=== PATIENT | male | born 1945 | race Caucasian/White ===

== ENCOUNTER 2019-11-05 11:36 | Emergency (ER) | payer MEDICARE, SELFPAY ==
[2019-11-05 11:39] VITALS: BP 163/77; PULSE 73; RESP 16; TEMP 36.7; O2SAT 97
[2019-11-05 11:54] LABS: Basophils Absolute Auto 0.1 K/mm3 (0.0-0.1); Basophils Percent Auto 0.8 % (0.2-1.2); Eosinophils Absolute Auto 0.1 K/mm3 (0-0.3); Eosinophils Percent Auto 1.1 % (0-4.4); Hematocrit 41.3 % (42.0-52.0); Hemoglobin 13.9 g/dL (14.0-18.0); Immature Granulocyte Absolute 0.04 K/mm3 (0.00-0.031); Immature Granulocyte Percent A 0.6 % (0-0.5); Lymphocytes Absolute Auto 1.45 K/mm3 (0.9-3.2); Lymphocytes Percent Auto 19.9 % (18.3-44.2); Mean Corpuscular HGB Conc 33.7 g/dl (32-36); Mean Corpuscular Hemoglobin 31.4 pg (26-34); Mean Corpuscular Volume 93.2 fl (80-100); Monocytes Absolute Auto 0.5 K/mm3 (0.1-0.6); Monocytes Percent Auto 6.6 % (2.6-8.5); Neutrophils Absolute Auto 5.2 K/mm3 (1.3-6.7); Platelet Count Result 212 k/mm3 (150-375); Red Blood Count 4.43 M/mm3 (4.6-6.20); Red Cell Distribution Width 12.4 % (11.5-14.5); White Blood Count 7.3 K/mm3 (4.5-10.0)
[2019-11-05 12:07] LABS: Alanine Aminotransferase 22 U/L (4-50); Albumin Level 4.5 g/dL (3.5-5.1); Alkaline Phosphatase 43 U/L (38-126); Aspartate Amino Transferase 25 U/L (17-59); Bilirubin,Total 0.6 mg/dL (0.2-1.3); Blood Urea Nitrogen 16 mg/dL (9-20); Calcium 9.2 mg/dL (8.4-10.2); Carbon Dioxide 20 mmol/L (22-30); Chloride 107 mmol/L (98-107); Estimated CRCL calculation 66 ml/min; Estimated Glomerular Filt Rate > 60; Glucose 104 mg/dL (75-110); Potassium 4.1 mmol/L (3.4-5.0); Sodium 137 mmol/L (137-145)
--- NOTE | 2019-11-05 12:14 | ED.MALEGU ---
HPI - Male Genitourinary General Chief complaint: Urogenital-Male Stated complaint: welpBria peeing blood Time Seen by Provider: 11/05/19 12:14 Source: patient Mode of arrival: ambulatory Limitations: no limitations History of Present Illness HPI Narrative: A 74 y/o male presents to the ED with c/o hematuria for 2 days. Pt has a PMHx of BPH that he has seen Dr. Lyn for in the past. Pt was on Avodart and Flomax but no longer takes these medications. Pt does not have a history of hematuria. Pt notes that he has a FHx of various cancers. Pt's brother from prostate cancer. He reports dysuria, but denies urinary urgency, urinary retention, ABD pain, N/V, and a fever. Onset (ago): day(s) (2) Related Data Home Medications Medication Instructions Recorded Confirmed calcium carbonate 1,177 mg 1,177 mg PO DAILY 08/14/19 08/18/19 chewable tablet cholecalciferol (vitamin D3) 125 unit PO 08/14/19 08/18/19 mcg (5,000 unit) disintegrating tablet cyanocobalamin (vitamin B-12) 1,000 mcg PO DAILY 08/14/19 08/18/19 1,000 mcg capsule omega-3 fatty acids 1,000 mg 1,000 mg PO DAILY 08/18/19 08/18/19 capsule Allergies Allergy/AdvReac Type Severity Reaction Status Date / Time No Known Drug Allergies Allergy Unknown Verified 11/05/19 11:43 Review of Systems Review of Systems: All systems reviewed & are unremarkable except as noted in HPI and below Constitutional: Constitutional: Denies fever(s) Gastrointestinal: Gastrointestinal: Denies abdominal pain, Denies nausea and Denies vomiting Genitourinary: Genitourinary: Reports hematuria, Reports dysuria and Denies urinary urgency Comments: Denies: urinary retention PMF Past Medical History Medical History Benign prostate hyperplasia Hyperlipidemia Hypertension Obesity Prediabetes Sleep apnea Vertigo Vitamin D deficiency, unspecified Surgical History Surgical History Hx of colonoscopy Social History Social History (Updated 11/05/19 @ 12:29 by Merlene Padilla) Smoking status: Never smoker Gender identity (if verbalized by the patient): Male Comments PCP: Dr. Zuniga Exam Const: General: cooperative and healthy appearing Nutritional Appearance: obese Orientation/consciousness: patient oriented x3 Limitations: no limitations HENMT: Head: normal to inspection Neck: Neck: normal visual inspection and no lymphadenopathy Chest: Chest palpation & inspection: no tenderness Resp: Effort & Inspection: normal respiratory effort Auscultation: clear to auscultation bilaterally, no rales, no rhonchi and no wheezes Cardio: Jugular venous distension: no JVD Rate: regular rate Rhythm: regular rhythm Heart sounds: no murmurs GI: Inspection: non-distended GI Palp: Yes Soft to palpation and No Tenderness to palpation present (GI) Skin: General skin exam: normal color Neuro: General: patient oriented x3 and moves all extremities Speech: normal speech Extrem: General: no edema Psych: Appearance: well kempt Affect: normal affect Course Vital Signs Vital signs: Vital Signs Temperature 36.7 C 11/05/19 11:39 Pulse Rate 73 11/05/19 11:39 Respiratory Rate 16 11/05/19 11:39 Blood Pressure 163/77 H 11/05/19 11:39 Pulse Oximetry 97 11/05/19 11:39 Temperature 36.7 C 11/05/19 11:39 Pulse Rate 73 11/05/19 11:39 Respiratory Rate 16 11/05/19 11:39 Blood Pressure 163/77 H 11/05/19 11:39 Pulse Oximetry 97 11/05/19 11:39 MDM - Male Genitourinary MDM Narrative Medical decision making narrative: He has moderate hematuria. UA indeterminate for infection. Not retaining on bladder scan. Will start antibiotics for suspected infection and have him follow-up with urology if it does not resolve. Differential Diagnosis Differential diagnosis: Likely urinary tract infection, prostatitis and acute retention of urine Medic
[2019-11-05 12:27] LABS: Add Urine Microscopic? YES; Appearance Urine Cloudy (Clear); Bilirubin Urine Negative (Negative); Blood Urine 3+ (Negative); Color Urine Yellow (Yellow); Glucose Urine UA Negative (Negative); Ketones Urine Negative (Negative); Leukocyte Esterase Ur Negative LEU/UL (Negative); Nitrate Urine Negative (Negative); Protein Urine 2+ mg/dL (Negative); RBC Urine >75 /hpf (0-2); Specific Grav Ur 1.017 (1.001-1.035); Urobilinogen Urine Negative mg/dL (<2.0); WBC Urine 16-20 /hpf
[2019-11-05] MEDS: CEFDINIR 300 MG CAPSULE PO (13:10)
== END 2019-11-05 13:32 | disposition home or self-care (01) ==
PROVIDERS: Emergency Provider Emergency Medicine; PCP Internal Medicine
DX: N39.0 Urinary tract infection, site not specified (principal); R31.9 Hematuria, unspecified; N40.0 Benign prostatic hyperplasia without lower urinary tract symptoms; E78.5 Hyperlipidemia, unspecified; I10 Essential (primary) hypertension; G47.30 Sleep apnea, unspecified; E55.9 Vitamin D deficiency, unspecified; E66.9 Obesity, unspecified; Z68.33 Body mass index [BMI] 33.0-33.9, adult; R73.03 Prediabetes
CPT/HCPCS: 36415; 80053; 81001; 85025; 87086; 87088; 99283; A9270

== ENCOUNTER 2020-01-30 13:57 | Outpatient (CLI) | payer MEDICARE, SELFPAY ==
--- NOTE | ~2020-01-30 | CT_ITS ---
EXAMINATION: CT abdomen pelvis wo/w con DATE: 01/30/2020 14:59 INDICATION: Gross hematuria TECHNIQUE: Computed tomography (CT) of the abdomen and pelvis was performed without intravenous contr ast. CT of the abdomen and pelvis was then performed with a total of 130 mL Omnipaque 350 intravenous contrast using a double-bolus technique for simultaneous opacification of the renal parenchyma and r enal collecting system. The dose-length product (DLP) was 2411.21 mGy-cm. Automated exposure control and iterative reconstruction technique were employed. COMPARISON: 04/18/2019 FINDINGS: Minimal dependent atelectasis is present in the lung bases. The heart size is normal. The l iver, spleen, pancreas, gallbladder, and adrenal glands are normal. No stones are identified in the k idneys, ureters, or bladder. There is no hydronephrosis or hydroureter. No suspicious renal or urothe lial lesion is identified. There is marked enlargement of the prostate with enlargement of the median lobe which protrudes into the bladder. Mild circumferential bladder wall thickening is noted. No pat hologically enlarged abdominal or pelvic lymph nodes are identified. There is no free intraperitoneal gas or evidence of bowel obstruction. There are bilateral fat-containing inguinal hernias. A moderat e volume of colonic stool is present. IMPRESSION: 1. No CT correlate for the patient's symptoms. 2. Marked enlargement of the prostate. Mild circumferential bladder wall thickening is likely related to chronic outlet obstruction. Reviewed, dictated and finalized at location A. IMPRESSION: 1. No CT correlate for the patient's symptoms. 2. Marked enlargement of the prostate. Mild circumferential bladder wall thicke penelope is likely related to chronic outlet obstruction.
--- NOTE | ~2020-01-30 | XR_ITS ---
EXAMINATION: XR abdomen/kub 1V INDICATION: Gross hematuria TECHNIQUE: Supine views of the abdomen were obtained on 2 radiographs. COMPARISON: CT from today FINDINGS: No urinary tract calculi are identified. The bowel gas pattern is normal. Mild osteoarthrit is is noted. IMPRESSION: 1. No urinary tract calculi identified. Reviewed, dictated and finalized at location A.
[2020-01-30 14:36] LABS: Estimated Glomerular Filt Rate 49
== END 2020-01-30 13:58 | disposition home or self-care (01) ==
PROVIDERS: PCP Internal Medicine; Visit Provider Urology
DX: R31.0 Gross hematuria (principal); N40.0 Benign prostatic hyperplasia without lower urinary tract symptoms
CPT/HCPCS: 36415; 74018; 74178; Q9967

== ENCOUNTER 2022-04-28 14:51 | Outpatient (CLI) | payer MEDICARE, SELFPAY ==
--- NOTE | ~2022-04-28 | XR_ITS ---
XR knee LT 3V 04/28/2022 15:16 Indication: Left knee pain Procedure: 3 views left knee Comparison: No prior studies for comparison. Findings: Mild osteoarthritis of the left knee. No fracture, subluxation or dislocation. No significa nt joint effusion. No foreign bodies. Impression: 1: Mild osteoarthritis of the left knee. Reviewed, dictated and finalized at location B. Impression: 1: Mild osteoarthritis of the left knee.
== END 2022-04-28 14:52 | disposition home or self-care (01) ==
PROVIDERS: PCP Internal Medicine; Visit Provider Internal Medicine
DX: M17.12 Unilateral primary osteoarthritis, left knee (principal)
CPT/HCPCS: 73562

== ENCOUNTER 2022-06-02 14:11 | Outpatient (CLI) | payer MEDICARE, SELFPAY ==
--- NOTE | ~2022-06-02 | XR_ITS ---
EXAMINATION: XR abdomen/kub 1V DATE: 06/02/2022 14:41 INDICATION: Hematuria. Low back pain. TECHNIQUE: A supine view of the abdomen on 2 radiographs was obtained. COMPARISON: CT dated 01/30/2020 FINDINGS: There is some bowel gas and small amounts of stool projecting over the bilateral kidneys which mildly limits evaluation for nephrolithiasis. 2 mm density projecting over the lower pole of the left kidne y and similar position to a renal stone seen at the lower pole of the left kidney on prior CT. No sto malika seen along the course of the ureters. No dilated bowel to suggest obstruction. Transitional L5 s egment. IMPRESSION: 1. Possible persistent 2 mm stone at the lower pole the left kidney. No other evident urolithiasis. Reviewed, dictated and finalized at location B. IMPRESSION: 1. Possible persistent 2 mm stone at the lower pole the left kidney. No other e vident urolithiasis.
== END 2022-06-02 14:12 | disposition home or self-care (01) ==
PROVIDERS: PCP Internal Medicine; Visit Provider Internal Medicine
DX: R31.9 Hematuria, unspecified (principal)
CPT/HCPCS: 74018

== ENCOUNTER 2024-04-27 11:19 | Outpatient (CLI) | payer MEDICARE, SELFPAY ==
--- NOTE | ~2024-04-27 | XR_ITS ---
XR abdomen/kub 1V Ordering provider: Francis Desai MD History: . PERS HX OF KIDNEY STONES- RIGHT SIDE PAIN . Comparison: June 02, 2022 FINDINGS: BOWEL: Nonobstructive bowel gas pattern. ORGANOMEGALY: None. SIGNIFICANT PATHOLOGIC CALCIFICATIONS: Possibility of faint calcification in the right kidney lower p ole is not excluded. Fecal material and gas is overlapping both kidneys. OTHER: No free air is seen under the diaphragm. Degenerative changes of the spine. IMPRESSION: NO ACUTE ABDOMINAL FINDINGS. Possible faint calcification in the right kidney lower pole. Follow-up advised. Reviewed, dictated and finalized at location A.
== END 2024-04-27 11:20 | disposition home or self-care (01) ==
PROVIDERS: PCP Nurse Practitioner Family; Visit Provider Urology
DX: Z87.442 Personal history of urinary calculi (principal)
CPT/HCPCS: 74018

== ENCOUNTER 2024-12-28 09:07 | Outpatient (CLI) | payer MEDICARE, SELFPAY ==
--- NOTE | ~2024-12-28 | XR_ITS ---
XR abdomen/kub 1V Ordering provider: Francis Desai MD History: . PER HX OF KIDNEY STONES . Comparison: None. FINDINGS: BOWEL: Nonobstructive bowel gas pattern. ORGANOMEGALY: None. SIGNIFICANT PATHOLOGIC CALCIFICATIONS: Possible tiny stone in the left and right kidney lower pole. OTHER: No free air is seen under the diaphragm. Degenerative changes of the spine. IMPRESSION: NO ACUTE ABDOMINAL FINDINGS. Possible bilateral kidney lower pole stones. Noncontrast CT is better for evaluation. Reviewed, dictated and finalized at location A. IMPRESSION: NO ACUTE ABDOMINAL FINDINGS. Possible bilateral kidney lower pole stones. Noncontrast CT is better for evalu ation.
== END 2024-12-28 09:08 | disposition home or self-care (01) ==
PROVIDERS: PCP Nurse Practitioner Family; Visit Provider Urology
DX: Z87.442 Personal history of urinary calculi (principal)
CPT/HCPCS: 74018